=== PATIENT | male | born 1970 | race Caucasian/White ===

== ENCOUNTER 2023-04-21 06:35 | Day surgery (SDC) | payer BC ==
[2023-04-21] MEDS ORDERED: CEFAZOLIN SODIUM 1 GM/VIAL ONE (07:03)
[2023-04-21] MEDS ORDERED: Ringers Lactate 1,000 ML IV ONE ×2 (07:03→09:09)
[2023-04-21] MEDS ORDERED: LIDOCAINE HCL/EPINEPHRINE 20 ML MDV ONE (07:37)
[2023-04-21] MEDS ORDERED: NA CHLORIDE 0.9% 500 ML ONE (07:37)
[2023-04-21] MEDS ORDERED: OXYMETAZOLINE HCL 0.05% 15ML NAS ONE (07:37)
[2023-04-21] MEDS ORDERED: BACITRACIN OINTMENT 14 GM TUBE TOP ONE (08:55)
[2023-04-21] MEDS ORDERED: MIDAZOLAM HCL 2 MG/2 ML INJ ONE (09:17)
[2023-04-21] MEDS ORDERED: KETOROLAC 30 MG/ML INJ ONE (09:17)
[2023-04-21] MEDS ORDERED: ONDANSETRON 4 MG/2 ML VIAL ONE ×2 (09:17→09:38)
[2023-04-21] MEDS ORDERED: dexAMETHasone 10 MG/ML VIAL ONE (09:17)
[2023-04-21] MEDS ORDERED: ROCURONIUM 50 MG/5 ML VIAL IV ONE (09:17)
[2023-04-21] MEDS ORDERED: propofoL 200 MG/20 ML VIAL IV ONE (09:17)
[2023-04-21] MEDS ORDERED: LIDOCAINE 2% MPF 5 ML VIAL ONE (09:17)
[2023-04-21] MEDS ORDERED: GLYCOPYRROLATE 0.2 MG/ML SYR ONE (09:17)
[2023-04-21] MEDS ORDERED: FENTANYL CITR 100 MCG/2 ML ONE (09:17)
[2023-04-21] MEDS ORDERED: NEOSTIGMINE 1 MG/ML -10 ML VIAL ONE (09:18)
[2023-04-21] MEDS: HYDROMORPHONE HCL 1 MG/ML INJ ONE ×2 (09:30→09:35)
[2023-04-21] MEDS ORDERED: HYDROCODONE/APAP 7.5/325 MG TAB ONE (10:23)
[2023-04-21 11:02] VITALS: BP 127/81; TEMP 96.8; O2SAT 97
--- NOTE | 2023-04-23 13:24 | OP ---
Date of Procedure: 04/21/2023 Surgeon: JANN DRAKE Primary Care Physician: Mario Alberto Leigh MD Preoperative Diagnoses: 1. Bilateral nasal septal deviation. 2. Bilateral nasal valve collapse. 3. Left palma bullosa. 4. Bilateral inferior turbinate hypertrophy. 5. Nasal bone fracture. Postoperative Diagnoses: 1. Bilateral nasal septal deviation. 2. Bilateral nasal valve collapse. 3. Left palma bullosa. 4. Bilateral inferior turbinate hypertrophy. 5. Nasal bone fracture. Procedures: 1. Bilateral diagnostic nasal endoscopy. 2. Endoscopic septoplasty. 3. Reduction of left palma bullosa. 4. Open reduction of right nasal bone fracture. 5. Bilateral nasal valve remodeling with VivAer radiofrequency ablation. 6. Bilateral superficial ablation of inferior turbinates with VivAer radiofrequency. Anesthesia: General endotracheal anesthesia was administered. I also infiltrated approximately 10 to 12 mL of 1% lidocaine with 1:100,000 epinephrine into the bilateral septal, inferior turbinate mucosa, and left palma bullosa mucosa. Estimated Blood Loss: Approximately 15 to 20 mL. Specimens: Septal cartilage and bone submitted. Findings: A mildly displaced right nasal bone fracture with [id number] deviated nasal septum, right worse than left, with superior upper cartilage deviation and a large left posterior septal spur; bilateral inferior turbinate hypertrophy 2-3 out of 4, large left palma bullosa obstructing left nasal cavity, moderate bilateral internal nasal valve collapse. Complications: None. Disposition: Stable. The patient tolerated the procedure well. Indication For Procedure: Patient is a pleasant 53-year-old male who presented to my outpatient clinic with chronic bilateral nasal obstruction secondary to deviated septum, inferior turbinate hypertrophy, large left palma bullosa, fracture of the nasal bones, and bilateral nasal valve collapse. CT scan confirmed these findings. Thus, these were indications to bring the patient to operative suite for the above-mentioned procedures. He understood, all questions were answered and risks versus benefits and complications were explained in detail and a consent form was signed, which was placed in the chart. Description Of Procedure: Patient was transferred from the preoperative holding area to the operative suite by Department of Anesthesia, placed on the operating table supine sedated and intubated in normal fashion. Table was rotated 180 degrees and head rest was placed. I infiltrated the intranasal mucosa with approximately 10 mL of 1% lidocaine with 1:100,000 epinephrine to bilateral nasal septal mucosa and inferior turbinate mucosa. Afrin-soaked nasal pledgets were inserted into bilateral nasal cavities for vasoconstriction and congestion. Patient was then prepped and draped. I removed the pledgets from the nasal cavities and inserted a 0 degree rigid nasal endoscope into bilateral nasal cavities. Patient had significant deviation bilaterally secondary to deviated septum, which was probably worsened with recent nasal trauma. I infiltrated approximately 1 to 2 mL of 1% lidocaine with 1:100,000 epinephrine into the anterior face of the left middle turbinate. I incised the palma bullosa with endoscopic scissors and then removed the obstructive inferior edge of the middle turbinate with Katie forceps. I then cauterized the edges with suction Bovie cautery on the setting of 20 for coagulation. Next, I made a modified [place] incision into the left nasal septal mucosa down the periosteum of the nasal septal cartilage and elevated the mucosal flap with [place] elevator. The incision was made with a #15 blade scalpel. I then made a crossover incision with [place] elevator, thereby elevating the right-sided septal mucosa off the obstructive cartilage and bone. Once I isolated the cartilage and bone, I then made superior, posterior, and inferior cuts with the [place] elevator and #15 blade scalpel and removed the obstructive cartilage and bone. Patient had a large vomer spur projecting into the left nasal cavity and this was removed with a hammer and chisel. I used nasal endoscopy to confirm that the nasal cavities were patent after removing the obstructive pieces of cartilage and bone. I then reapproximated the nasal septal flaps with 4-0 plain gut suture in a box like fashion followed by mucosal incision reapproximation with the 4-0 plain gut suture in a continuous running fashion. Next, I placed my attention to the nasal valves whereby radiofrequency ablation was performed with the [employer] radiofrequency wand. I picked 3 to 5 areas of bilateral internal nasal valves to perform radiofrequency ablation for approximately 30 seconds in each spot of the nasal vestibule/valves. I noticed immediate improvement in nasal patency after this procedure. I then touched various superficial areas of bilateral inferior turbinate mucosa with VivAer radiofrequency wand and held in place for approximately 30 seconds at each point. This improved nasal patency immediately. I then made an incision between the right upper lateral cartilage and the bone exposing the nasal bone fracture. I then performed right osteotomy to the right nasal bone and elevated the bone into place with [place] elevator. Patient had slight oozing of blood. Thus, I cut 2 pieces of [place]if[place] to lie against the bilateral nasal septum mucosa followed by antibiotic coated Perez splints and I secured the splints of the caudal septum with a 2.0 Prolene suture. A mustache dressing was placed. He was then transferred back to the department of anesthesia in stable condition and transferred to PACU. He tolerated the procedure well and will be discharged home on analgesic as well as oral and topical antibiotics and will follow up in 7 to 10 days or sooner if needed. YING/LIAT Voice ID: [id number] Report ID: [id number] OTONIEL
== END 2023-04-21 11:00 | disposition home or self-care (01) ==
LOC: OR 06:35
PROVIDERS: ATTEND Otolaryngology Facial Plastic Surgery
PROC: 09QK8ZZ Repair Nasal Mucosa and Soft Tissue, Via Natural or Artificial Opening Endoscopic (ICD-10-PCS; 2023-04-21)
PROC: 0NSB0ZZ Reposition Nasal Bone, Open Approach (ICD-10-PCS; 2023-04-21)
PROC: 09BM8ZZ Excision of Nasal Septum, Via Natural or Artificial Opening Endoscopic (ICD-10-PCS; 2023-04-21)
PROC: 09TL8ZZ Resection of Nasal Turbinate, Via Natural or Artificial Opening Endoscopic (ICD-10-PCS; 2023-04-21)
PROC: 09JK8ZZ Inspection of Nasal Mucosa and Soft Tissue, Via Natural or Artificial Opening Endoscopic (ICD-10-PCS; principal; 2023-04-21 07:30)
DX: J34.2 Deviated nasal septum (principal); J34.3 Hypertrophy of nasal turbinates; J34.89 Other specified disorders of nose and nasal sinuses; S02.2XXA Fracture of nasal bones, initial encounter for closed fracture
CPT/HCPCS: 31240; 30469; 30802; 21336; 88300; J2704; J2710; J2001; J2250; J3010; J1100; J1170; J2405 ×2; J7120 ×2; J7040; J0690